=== PATIENT | female | born 1960 | race Caucasian/White ===

== ENCOUNTER 2023-05-21 08:10 | Observation (INO) ==
--- NOTE | 2023-04-21 16:03 | PAT Medication Instructions ---
Medication Instructions Date of Service April 21, 2023 Home Medications albuterol sulfate 90 mcg/actuation aerosol inhaler 2 puff inhalation QID PRN alprazolam 0.25 mg tablet (Xanax) 0.25 mg PO HS PRN amitriptyline 75 mg tablet 75 mg PO HS amlodipine 10 mg tablet 10 mg PO HS atorvastatin 40 mg tablet 40 mg PO HS cetirizine 10 mg tablet (Zyrtec) 10 mg PO QAM cyanocobalamin (vitamin B-12) 500 mcg tablet (Vitamin B-12) 500 mcg PO QAM diclofenac sodium 75 mg tablet,delayed release 75 mg PO BID enalapril 10 mg-hydrochlorothiazide 25 mg tablet 1 tab PO QAM ezetimibe 10 mg tablet (Zetia) 10 mg PO HS gabapentin 600 mg tablet 600 mg PO BID levothyroxine 112 mcg tablet (Synthroid) 112 mcg PO QAM metformin 500 mg tablet 500 mg PO BID metoprolol tartrate 50 mg tablet 50 mg PO BID montelukast 10 mg tablet (Singulair) 10 mg PO HS potassium chloride 10 mEq tablet,extended release 10 meq PO BID riboflavin (vitamin B2) 100 mg tablet (Vitamin B-2) 400 mg PO QAM ASK your surgeon for instructions diclofenac sodium 75 mg tablet,delayed release 75 mg PO BID DO NOT take the morning of surgery cetirizine 10 mg tablet (Zyrtec) 10 mg PO QAM cyanocobalamin (vitamin B-12) 500 mcg tablet (Vitamin B-12) 500 mcg PO QAM enalapril 10 mg-hydrochlorothiazide 25 mg tablet 1 tab PO QAM metformin 500 mg tablet 500 mg PO BID potassium chloride 10 mEq tablet,extended release 10 meq PO BID riboflavin (vitamin B2) 100 mg tablet (Vitamin B-2) 400 mg PO QAM Take morning of surgery With a small sip of water, OTHERWISE NOTHING TO EAT OR DRINK AFTER MIDNIGHT: albuterol sulfate 90 mcg/actuation aerosol inhaler 2 puff inhalation QID PRN(use if needed; please bring with you to hospital day of surgery if possible) gabapentin 600 mg tablet 600 mg PO BID levothyroxine 112 mcg tablet (Synthroid) 112 mcg PO QAM metoprolol tartrate 50 mg tablet 50 mg PO BID Take evening before surgery albuterol sulfate 90 mcg/actuation aerosol inhaler 2 puff inhalation QID PRN(if needed) alprazolam 0.25 mg tablet (Xanax) 0.25 mg PO HS PRN(if needed) amitriptyline 75 mg tablet 75 mg PO HS amlodipine 10 mg tablet 10 mg PO HS atorvastatin 40 mg tablet 40 mg PO HS ezetimibe 10 mg tablet (Zetia) 10 mg PO HS gabapentin 600 mg tablet 600 mg PO BID metformin 500 mg tablet 500 mg PO BID metoprolol tartrate 50 mg tablet 50 mg PO BID montelukast 10 mg tablet (Singulair) 10 mg PO HS potassium chloride 10 mEq tablet,extended release 10 meq PO BID Other Notes If you have any questions please call us at [phone] or [phone] or [phone] or [phone]
--- NOTE | 2023-04-30 11:52 | Anesthesiology Consultation ---
Date of Service April 30, 2023 Assessment & Plan (1) Encounter for pre-operative examination: - lidocaine allergy: tachycardia, "fingers turn blue" reported by pt. - Outpatient joint assessment: Patient is currently scheduled for inpatient pathway. If re-evaluated pending system levels during current pandemic/surgeon requests outpatient pathway, patient is not acceptable candidate for outpatient joint program from anesthesia standpoint. Chart Review Chart Review: Patient seen in Pre Admission Testing Teaching & Discussion Pre-Anesthesia Teaching/Discussion Notes: Instructed NPO after midnight before surgery, except medications with 15 cc of water. Medication instructions provided according to the PAT guidelines. History Surgery Operation Date: 05/21/23 09:55 Proposed Procedures p Right Total Knee Arthroplasty - Joe Solis DO Height/Weight Height: 5 ft 5 in Weight: 127.1 kg Allergies Allergy/AdvReac Type Severity Reaction Status Date / Time lidocaine Allergy Unknown INCREASED Verified 04/21/23 12:40 HR;FINGERS TURNED BLUE oxycodone Allergy Unknown ITCHING Verified 04/21/23 12:19 Medications Home Medications Medication Instructions Recorded Confirmed Last Taken albuterol sulfate 90 mcg/actuation 2 puff inhalation QID PRN 04/21/23 04/21/23 Unknown aerosol inhaler Shortness Of Breath Or Wheezing alprazolam 0.25 mg tablet (Xanax) 0.25 mg PO HS PRN Anxiety 04/21/23 04/21/23 Unknown amitriptyline 75 mg tablet 75 mg PO HS 04/21/23 04/21/23 Unknown amlodipine 10 mg tablet 10 mg PO HS 04/21/23 04/21/23 Unknown atorvastatin 40 mg tablet 40 mg PO HS 04/21/23 04/21/23 Unknown cetirizine 10 mg tablet (Zyrtec) 10 mg PO QAM 04/21/23 04/21/23 Unknown cyanocobalamin (vitamin B-12) 500 500 mcg PO QAM 04/21/23 04/21/23 Unknown mcg tablet (Vitamin B-12) diclofenac sodium 75 mg 75 mg PO BID 04/21/23 04/21/23 Unknown tablet,delayed release enalapril 10 1 tab PO QAM 04/21/23 04/21/23 Unknown mg-hydrochlorothiazide 25 mg tablet ezetimibe 10 mg tablet (Zetia) 10 mg PO HS 04/21/23 04/21/23 Unknown gabapentin 600 mg tablet 600 mg PO BID 04/21/23 04/21/23 Unknown levothyroxine 112 mcg tablet 112 mcg PO QAM 04/21/23 04/21/23 Unknown (Synthroid) metformin 500 mg tablet 500 mg PO BID 04/21/23 04/21/23 Unknown metoprolol tartrate 50 mg tablet 50 mg PO BID 04/21/23 04/21/23 Unknown montelukast 10 mg tablet 10 mg PO HS 04/21/23 04/21/23 Unknown (Singulair) potassium chloride 10 mEq 10 meq PO BID 04/21/23 04/21/23 Unknown tablet,extended release riboflavin (vitamin B2) 100 mg 400 mg PO QAM 04/21/23 04/21/23 Unknown tablet (Vitamin B-2) Past Medical History Medical History Anxiety Asthma rarely uses inhaler, very well controlled GERD (gastroesophageal reflux disease) rare, controlled, stable per pt History of COVID-19 11/2022- home test- fever-denies hospitalization- resolved HTN (hypertension) controlled, stable per pt Hx of colonic polyps Hx of supraventricular tachycardia hx- ~15 yrs ago; s/p ablation Hyperlipidemia Hypothyroidism Obesity on metformin for weightloss Seasonal allergies Patient denies h/o stroke, seizures, heart attack, heart failure, DM, blood clots or blood transfusions. Exercise / Class Metabolic Activity III < 4 Walking/Shop/Light housework (denies chest discomfort or shortness of breath with usual activities) Past Family History Family History Other No family history of adverse response to anesthesia Past Surgical History Surgical History History of breast biopsy multiple-benign History of cardiac radiofrequency ablation ~15 yrs ago- has not seen cardio since History of colon resection History of repair of ACL L Hx of appendectomy Hx of arthroscopy of shoulder right Hx of bilateral breast reduction surgery Hx of section x 2 Hx of colonoscopy Hx of knee surgery x3 Hx of tonsillectomy Past Anesthesia History No Hx of Anesthesia Complications and No Family Hx of Anesthesia Complications History of PONV No Hx of PONV and Hx of Motion Sickness Social History Smoking Status: Never smoker Do You Dip or Chew Tobacco: No Hx Alcohol Use: Yes alcohol intake frequency: holidays/special occasions only Hx Substance Use: No substance use type: does not use Review of Systems Patient denies chest pain, shortness of breath, dyspnea on exertion, snoring, witnessed apneas, fever, chills, cough, wheezing, or palpitations. Physical Exam Vital Signs Vitals BP 143/90 P 62 TEMP 98.2 SP02 96% on RA RESP 18 Physical Full cervical extension range of motion without pain TMD 3.5 finger breadths Mallampati Score 2 Dentition: intact, denies chipped or loose teeth, caps/crowns, implants or bridges Lungs: normal respiratory effort. Good air movement, clear throughout to auscultation, no adventitious breath sounds Cardiac: regular rate and rhythm, no murmurs noted Carotid arteries: negative bruit bilat Lab Results Anesthesia Preop Results Results Anesthesia Widget: WBC 6.88 K/ul (4.8-10.8) 04/30/23 Hgb 14.0 g/dl (12.0-16.0) 04/30/23 Hct 41.5 % (37.0-47.0) 04/30/23 Plt 325 K/uL (130-400) 04/30/23 Na 139 mmol/L (136-145) 04/30/23 K 4.0 mmol/L (3.5-5.1) 04/30/23 Cl 104 mmol/L (98-107) 04/30/23 CO2 28 mmol/L (21-32) 04/30/23 BUN 16 mg/dl (6-23) 04/30/23 Creat 0.84 mg/dl (0.6-1.2) 04/30/23 Glucose Level 104 mg/dl (70-99(Fasting)) H 04/30/23 PT 10.3 Seconds (9.0-12.0) 04/30/23 PTT 26.5 Seconds (21.0-31.0) 04/30/23 INR 0.9 (0.9-1.1) 04/30/23 HA1c 5.9 % (4.5-5.6) H 04/30/23 Urine Color Yellow 04/30/23 Urine Appearance Clear (Clear) 04/30/23 Urine pH 6.5 (4.5-7.5) 04/30/23 Urine Specific [place] 1.010 (1.000-1.030) 04/30/23 Urine Protein Negative (Negative) 04/30/23 Urine Glucose (UA) Negative (Negative) 04/30/23 Urine Ketones Negative (Negative) 04/30/23 Urine Blood Negative (Negative) 04/30/23 Urine Nitrite Negative (Negative) 04/30/23 Urine Bilirubin Negative (Negative) 04/30/23 Urine Urobilinogen Negative (Negative) 04/30/23 Urine Leukocyte Esterase Trace (Negative) H 04/30/23 Urine WBC (Auto) 1-5 /hpf (0-5) 04/30/23 Urine RBC (Auto) 0-4 /hpf (0-4) 04/30/23 Urine Hyaline Casts (Auto) 0 /lpf (0-5) 04/30/23 Urine Epithelial Cells (Auto) 20-30 /lpf (0-5) H 04/30/23 Urine Bacteria (Auto) Negative (Negative) 04/30/23 Blood Type A Positive 04/30/23 Antibody Screen NEGATIVE 04/30/23 Testing Electrocardiogram Date: 04/30/23 Sinus bradycardia, rate 59 bpm Chest X-Ray Date: 04/30/23 No active disease in the chest COVID-19 Risk Screen Screening Information COVID-19 Screen Date: 04/30/23 Exposure 21 Days Family/Household +COVID Last 21 Days: No Exposure 10 Days Any COVID Exposure Last 10 Days: No Symptoms Last 10 Days Experienced COVID Sx Last 10 Days: No + COVID 0-90 Days COVID + in Last 0-90 Days: No
--- NOTE | 2023-04-30 14:49 | History & Physical Report ---
Date of Service April 30, 2023 date of surgery: 05/21/23 Procedure: Right Total Knee Arthroplasty Surgeon: Joe Solis Assessment & Plan (1) Arthritis of right knee: Plan: Patient presents today for preop evaluation prior to right total knee replacement. She is a longstanding history of right knee pain has undergone previous viscosupplementation, cortisone injection as well as prior arthroscopy in 2019 this point time is failed conservative measures and would like to proceed with right total knee arthroplasty. She will see for preoperative clearance as well as obtain preadmission testing. We will plan on overnight stay with discharge home with home health physical therapy, follow-up 2 weeks after surgery. She has a listed allergy to oxycodone which causes a rash therefore we will try tramadol postoperatively. Will place on aspirin 81 mg twice a day for 1 month postop DVT prophylaxis The risks and benefits have been discussed including, but not limited to, risk of infection, nerve injury, stiffness, loss of motion, failure to improve, etc. Reasonable outcomes and options of treatment were discussed. An explanation of appropriate alternatives to the procedure that may be advantageous were discussed and their risks and benefits, as well as the risks and benefits of not proceeding with treatment. I offered to answer any additional inquiries concerning the treatment involved. All the patient's questions were answered. The patient is agreeable, understanding of the treatment plan and alternatives, and wishes to proceed with the treatment plan. History of Present Illness Chief Complaint: Right knee pain Primary Care Provider: MINDY PCP Yue a pleasant 62-year-old female who presented for preop evaluation prior to upcoming right total knee replacement. She states she had pain in this knee for many years now which is gradually worsened and is now affecting her daily activities including walking standing using stairs. Rates her current pain as a 6 out of 10, is complaints of pain decreased range of motion and instability. X-rays were reviewed which show advanced degenerative changes tricompartmentally, she is undergone previous viscosupplementation, corticosteroid injection as well as prior arthroscopy in 2019 at this point time is failed conservative measures and would like to proceed with a right total knee arthroplasty. Allergies Allergy/AdvReac Type Severity Reaction Status Date / Time lidocaine Allergy Unknown INCREASED Verified 04/21/23 12:40 HR;FINGERS TURNED BLUE oxycodone Allergy Unknown ITCHING Verified 04/21/23 12:19 Home Medications Medication Instructions Recorded Confirmed Type albuterol sulfate 90 mcg/actuation 2 puff inhalation QID PRN 04/21/23 04/21/23 History aerosol inhaler Shortness Of Breath Or Wheezing alprazolam 0.25 mg tablet (Xanax) 0.25 mg PO HS PRN Anxiety 04/21/23 04/21/23 History amitriptyline 75 mg tablet 75 mg PO HS 04/21/23 04/21/23 History amlodipine 10 mg tablet 10 mg PO HS 04/21/23 04/21/23 History atorvastatin 40 mg tablet 40 mg PO HS 04/21/23 04/21/23 History cetirizine 10 mg tablet (Zyrtec) 10 mg PO QAM 04/21/23 04/21/23 History cyanocobalamin (vitamin B-12) 500 500 mcg PO QAM 04/21/23 04/21/23 History mcg tablet (Vitamin B-12) diclofenac sodium 75 mg 75 mg PO BID 04/21/23 04/21/23 History tablet,delayed release enalapril 10 1 tab PO QAM 04/21/23 04/21/23 History mg-hydrochlorothiazide 25 mg tablet ezetimibe 10 mg tablet (Zetia) 10 mg PO HS 04/21/23 04/21/23 History gabapentin 600 mg tablet 600 mg PO BID 04/21/23 04/21/23 History levothyroxine 112 mcg tablet 112 mcg PO QAM 04/21/23 04/21/23 History (Synthroid) metformin 500 mg tablet 500 mg PO BID 04/21/23 04/21/23 History metoprolol tartrate 50 mg tablet 50 mg PO BID 04/21/23 04/21/23 History montelukast 10 mg tablet 10 mg PO HS 04/21/23 04/21/23 History (Singulair) potassium chloride 10 mEq 10 meq PO BID 04/21/23 04/21/23 History tablet,extended release riboflavin (vitamin B2) 100 mg 400 mg PO QAM 04/21/23 04/21/23 History tablet (Vitamin B-2) Past Med/Surg History Medical History Anxiety Asthma rarely uses inhaler, very well controlled GERD (gastroesophageal reflux disease) rare, controlled, stable per pt History of COVID-19 11/2022- home test- fever-denies hospitalization- resolved HTN (hypertension) controlled, stable per pt Hx of colonic polyps Hx of supraventricular tachycardia hx- ~15 yrs ago; s/p ablation Hyperlipidemia Hypothyroidism Obesity on metformin for weightloss Seasonal allergies Surgical History History of breast biopsy multiple-benign History of cardiac radiofrequency ablation ~15 yrs ago- has not seen cardio since History of colon resection History of repair of ACL L Hx of appendectomy Hx of arthroscopy of shoulder right Hx of bilateral breast reduction surgery Hx of section x 2 Hx of colonoscopy Hx of knee surgery x3 Hx of tonsillectomy Family History Other No family history of adverse response to anesthesia Social History Smoking Status: Never smoker Second Hand Exposure: No; Do You Dip or Chew Tobacco: No; Hx Alcohol Use: Yes Hx Substance Use: No Preferred Language: Romansh Communication Ability: Effective Film Processor Required: No Beliefs That Will Affect Care: None Current Living Situation: Spouse and Family Feels Safe at Home: Yes Assistive Devices: Glasses Review of Systems Review of Systems: All systems reviewed & are unremarkable except as noted in HPI & below Constitutional: no fever, no chills and no sweats Respiratory: no cough and no dyspnea Cardiovascular: no chest pain, no dyspnea and no orthopnea Gastrointestinal: no abdominal pain, no nausea and no vomiting Musculoskeletal: as per Subjective / HPI Physical Exam Physical Exam: HT: 5ft 5in WT: 127 kg Constitutional: WD/WN, vitals as above no acute distress Respiratory: normal respiratory effort, lungs clear to auscultation no respiratory distress, no labored breathing and does not use accessory muscles Cardiovascular: RRR, no murmur, no edema Gastrointestinal (Abdomen): normal bowel sounds, soft, nontender, no hepatosplenomegaly Musculoskeletal: Knee: + knee abnormal to inspection (RIGHT KNEE), + effusion (+1 effusion), + surgical incision (well healed portals), + limited ROM of knee (ROM 0/3/110), + knee ROM with crepitation, + joint line tenderness (medial joint line) and + Lesyle's sign positive; no deformity, no skin erythema, no ecchymosis, no valgus laxity, no varus laxity, anterior drawer test negative, Brandie's sign negative and pivot shift test negative Results & Data Results & Data Diagnostic Findings Right Knee X-ray: Right knee series showing advanced degenerative changes to the right knee, narrowing of the medial compartment and patello-femoral joint with patellar spurring noted, findings showing joint space narrowing of the medial compartment and patello-femoral joint, osteophyte formation and subchondral sclerosis noted. overall varus alignment. no acute bony pathology noted.
[~2023-05-21 08:10] MED LIST: ACETAMINOPHEN 500 MG TAB PO SCH; BUPIVACAINE 0.25% PF 30 ML VIAL ONE; BUPIVACAINE 0.5 % 5 MG/1 ML PF 10ML VIAL ONE; CeleBREX 200 MG CAP PO SCH; DEXAMETHASONE SOD INJ 4 MG/ML VIAL ONE; EPINEPHrine INJ 1 MG/ML AMP ONE; FAMOTIDINE 20 MG TAB PO SCH; GABAPENTIN 600 MG DOSE PO SCH; LIDOCAINE 2% 2 ML VIAL/AMP(20MG/ML) INFIL ONE; LR 500ML BOLUS, THEN 15ML/HR IV SCH; LR 60ML/HR IV SCH; METOCLOPRAMIDE HCL 10 MG TABLET PO SCH; MIDAZOLAM HCL 1 MG/ML 2ML VIAL ONE; ONDANSETRON INJ 2 MG/ML 2 ML VIAL ONE; ROPIVACAINE 0.5% HCL/PF 150 MG, BUPIVACAINE 0.75% MPF 20 ML, EPINEPHrine 30MG/30ML (OR ... INSTIL SCH; TRANEXAMIC ACID 1,000 MG **IV Intra-op IV SCH; TRANEXAMIC ACID 1,000 MG **IV Pre-op IV SCH; dexAMETHasone 4 MG TAB PO SCH; fentaNYL citrate PF 100 MCG/2 ML VIAL ONE
--- NOTE | 2023-05-21 09:47 | History & Physical Bridge Note ---
Date of Service May 21, 2023 History & Physical Bridge Note I have examined the patient, reviewed the History & Physical and in the interval since the performance of the History & Physical I have noted the following changes of clinical significance: no changes noted
[2023-05-21] MEDS ORDERED: ONDANSETRON INJ 2 MG/ML 2 ML VIAL IV PRN ×2 (10:08→15:04)
[2023-05-21] MEDS ORDERED: fentaNYL citrate PF 100 MCG/2 ML VIAL IV PRN (10:08)
[2023-05-21] MEDS ORDERED: ATROPINE SULFATE 0.1 MG/ML 10ML SYR IV PRN (10:08)
[2023-05-21] MEDS ORDERED: ePHEDrine sulfate 50 MG/ML AMP IV PRN (10:08)
[2023-05-21] MEDS ORDERED: ORTHO JOINT ANESTHETIC ONE (10:24)
[2023-05-21] MEDS ORDERED: ePHEDrine sulfate 50 MG/ML SYR ONE (12:42)
[2023-05-21] MEDS ORDERED: PHENYLEPHRINE 100MCG/ML 5ML SYR ONE (12:43)
--- NOTE | 2023-05-21 13:16 | Operative Report ---
Post Operative Report Pre & Post Diagnosis Operation Date: 05/21/23 10:00 Pre-Op Diagnosis: Right Knee OsteoarthritisMorbid obesity BMI 46.6 Post-Op Diagnosis: Right Knee OsteoarthritisMorbid obesity BMI 46.6 I identified the patient and participated in the time-out.: Yes Procedure Operation Date: 05/21/23 10:00 Actual Procedures p Right Total Knee Arthroplasty(Right)Utilizing [employer] Neph[employer]ymirum journey 2 patient matched total knee arthroplasty size femur for right tibia 3 right poly 12 patella 32 vika - Joe Solis DO Surgeon Joe Solis DO Band Salvager Mata COULTER Estimated Blood Loss 10 Findings Consistent with Post-Op Diagnosis Patient presents with severe end-stage tricompartmental degenerative joint disease right knee varus alignment subchondral sclerosis marginal osteophytes subchondral eburnated [id number] with moderate to large effusion and obese leg Specimens Bone and cartilage Drains Medium bore Hemovac Anesthesia Type MAC Spinal Regional Complications none Disposition Accompanied Patient To Recovery: No Disposition: Recovery Room Indications Patient presents with severe end-stage tricompartmental DJD right knee nonresponse to conservative manage including physical therapy anti- inflammatories relative rest activity modification corticosteroid injections viscosupplementation above intraoperative findings were noted Description of Procedure After proper prepping and draping of the Right lower extremity anterior midline incision was made over the region of the extensor extensor mechanism after meticulous hemostasis was obtained and maintained in subcutaneous tissues a medial parapatellar incision was made The patella was subluxed lateralward the medial lateral gutter were cleaned from any hypertrophic synovitis and scar tissue of the distal femoral block was placed and the distal femoral osteotomy cut was made subsequently the chamfers anterior and posterior osteotomy cuts were made utilizing the 4-in-1 block the tibia was subsequently subluxed anteriorward medial and ateral meniscal remnants were excised in their entirety remnants of the anterior and posterior cruciate ligaments were excised in their entirety excellent exposure of the proximal tibia was obtained the tibial osteotomy guide was placed on the proximal tibial osteotomy cut was made once again the knee was irrigated with copious amounts of sterile saline solution the patella was subsequently everted lateralward thickened scar tissue around the patella was removed the patella was subsequently cut utilizing a freehand technique and was drilled prepared for final preparation and placement of patella socially flexion-extension gaps were checked and the equal and symmetric trials were placed to the appropriate femoral and tibial trials with poly-spacer being placed for equal flexion and extension gaps and full range of motion including extension to 0 and flexion to 140 the trial components after having been taken to recovery range of motion was subsequently removed meticulous hemostasis was obtained and maintained subsequently a knee block injection of joint cocktail including ropivacaine 0.5% 150 mg. Bupivacaine 0.5% epinephrine 1-200,030 mL's toradol 30 mg dexamethasone 4 mg ketamine 10 mg clonidine 100 micrograms normal saline solution 30 mg was infiltrated into the soft tissues of the posterior knee medial lateral gutters and periosteal synovium special attention was paid to protect neurovascular structures at all times subsequently trial components having been removed the knee was irrigated with sterile saline solution. debris was removed the proximal tibia was subsequently prepared and was made ready for the placement of the tibial component tibial component was also cemented and tamped into position the femoral component was subsequently placed and cemented in the position the patellar component was subsequently cemented in position because hemostasis once again obtained and maintained wound having been thoroughly irrigated with debridement and debridement lavage was performed as well as a medial parapatellar incision closed with #1 Vicryl in interrupted fashion subcutaneous was closed with #2 Vicryl skin was closed with skin clips. PA-C was necessary for prepping and drapping as well as wound closure of deep fascia Sub cutaneous tissue and skin and was necessary for the case. A sterile compressive dressing was placed patient was taken to recovery in stable condition of report dictated by Will I attest to the content of the Intraoperative Record and any orders documented therein. Any exceptions are noted below.Due to the complex nature of the procedure, the entire surgery was performed with the operational assistance of Mata COULTER. The assistant to the president, under direct supervision, was involved in the actual performance of all aspects of the surgical procedure including hemostasis, tissue retraction and incision, instrument management, patient positioning, and wound closure.The patient is1 2 7 kg with a BMI of46.6]. The patient's habitus did contribute to significant technical difficulty requiring extra time. Additional help was necessary in order to position the patient safely. The use of specialized (longer, deeper) retractors and/or instruments were needed. Due to this, the procedure took 20] minutes longer than the standard total knee arthroplasty." I attest to the content of the Intraoperative Record and any orders documented therein. Any exceptions are noted below.
--- NOTE | 2023-05-21 14:35 | Anesthesiology Progress Note ---
Date of Service May 21, 2023 Anesthesia Post Procedure Vital Signs Vital Signs: Temp Pulse Pulse Resp BP Pulse Ox O2 Del Method 05/21/23 14:25 70 20 146/82 H 93 Room Air 05/21/23 14:15 69 20 125/71 94 Room Air 05/21/23 14:05 69 15 120/70 95 Room Air 05/21/23 13:59 97.5 F L 74 14 98/55 L 98 Room Air 05/21/23 08:43 98.6 F 61 20 141/92 H 96 Room Air Transfer of Care Handoff Completed per policy Notes Mental Status: alert / awake / arousable and participated in evaluation Patient Amnestic to Procedure: Yes Nausea / Vomiting: adequately controlled Pain: adequately controlled Airway Patency, RR, SpO2: stable & adequate BP & HR: stable & adequate Hydration State: stable & adequate Neuraxial Anesthesia: was administered and sensory block is resolving Anesthetic Complications: no major complications apparent and Pt Satisfied with anesthetic care
[2023-05-21] MEDS ORDERED: HYDROmorphone INJ 0.5 MG/0.5 ML SYR IV PRN (15:04)
[2023-05-21] MEDS ORDERED: NALOXONE HCL 0.4 MG/1 ML VIAL/CARP IV PRN (15:04)
[2023-05-21] MEDS ORDERED: ALPRAZolam 0.25 MG TABLET PO PRN (15:04)
[2023-05-21] MEDS ORDERED: MAGNESIUM HYDROXIDE SUSP 30 ML UDC PO PRN (15:04)
[2023-05-21] MEDS ORDERED: ALBUTEROL HFA 8 GM INHALER INH PRN (15:04)
[2023-05-21] MEDS ORDERED: bisacodyL 10 MG SUPP PR PRN (15:04)
[2023-05-21] MEDS ORDERED: traMADol HCL 50 MG TABLET PO PRN (15:04)
[2023-05-21] MEDS ORDERED: diphenhydrAMINE 50 MG/ML VIAL IV PRN (15:04)
--- NOTE | 2023-05-21 15:04 | XRay Report ---
XR knee RT 1 or 2V routine CLINICAL HISTORY: Surgical Post Op COMPARISON: None FINDINGS: Alignment of the total right knee arthroplasty is anatomic. There is no periprosthetic fra cture or unexpected radiopaque foreign body. There are drains and skin cheryl. IMPRESSION: Expected findings following total right knee arthroplasty. ACT 112: Negative or not required by law. Electronically signed by: Cornel Santos M.D. 05/21/2023 3:02 PM
[2023-05-21] MEDS: SODIUM CHLORIDE 0.9% 1000ML 1,000 ML IV SCH (17:22)
[2023-05-21] MEDS ORDERED: AMITRIPTYLINE HCL 25 MG TAB PO SCH (21:00)
[2023-05-21] MEDS ORDERED: amLODIPine BESYLATE 5 MG TAB PO SCH (21:00)
[2023-05-21] MEDS ORDERED: MONTELUKAST SODIUM 10 MG TABLET PO SCH (21:00)
[2023-05-21] MEDS ORDERED: EZETIMIBE 10 MG TABLET PO SCH (21:00)
[2023-05-21] MEDS ORDERED: ATORVASTATIN 40 MG TAB PO SCH (21:00)
[2023-05-21] MEDS ORDERED: SENNA 8.6 MG TAB PO SCH (21:00)
[2023-05-21] MEDS: POTASSIUM CHLORIDE 10 MEQ TABCR PO SCH (22:15)
[2023-05-21] MEDS: ACETAMINOPHEN 500 MG TAB PO SCH (22:16)
[2023-05-21] MEDS: GABAPENTIN 600 MG TAB PO SCH (22:16)
[2023-05-21] MEDS: METOPROLOL TARTRATE 50 MG TAB PO SCH (22:16)
[2023-05-21] MEDS: DOCUSATE SODIUM 100 MG CAP PO SCH (22:16)
[2023-05-21] MEDS: metFORMIN HCL 500 MG TAB PO SCH (22:16)
[2023-05-21] MEDS: ceFAZolin 2000MG 2,000 MG/15 ML SYR IV SCH (22:17)
[2023-05-21] MEDS: ASPIRIN 81 MG ECTAB PO SCH (22:17)
[2023-05-22] MEDS: ceFAZolin 2000MG 2,000 MG/15 ML SYR IV SCH (03:24)
[2023-05-22] MEDS: SODIUM CHLORIDE 0.9% 1000ML 1,000 ML IV SCH (03:35)
[2023-05-22] MEDS: ACETAMINOPHEN 500 MG TAB PO SCH (05:34)
[2023-05-22] MEDS ORDERED: LEVOTHYROXINE SODIUM 112 MCG TABLET PO SCH (06:30)
--- NOTE | 2023-05-22 06:58 | Orthopedic Progress Note ---
Date of Service May 22, 2023 Assessment & Plan (1) History of total right knee replacement: Plan: POD #1 s/p Right TKA pt/ot dvt proph with GUY/SCD/ASA plan for d/c home with HHPT after PT Admission and Anticipated Discharge Date Admission Date: May 21, 2023 Subjective POD #1 s/p Right TKA Review of Systems Constitutional: no fever, no chills and no sweats Respiratory: no cough and no dyspnea Cardiovascular: no chest pain and no dyspnea Gastrointestinal: no abdominal pain, no nausea and no vomiting Physical Exam Physical Exam: Vital Signs Temp Pulse Pulse Pulse Resp BP BP 05/22/23 03:09 36.4 C L 66 16 109/66 05/21/23 22:15 05/21/23 22:22 36.4 C L 77 16 143/78 H 05/21/23 17:55 37.1 C 93 H 18 138/84 05/21/23 16:58 37.4 C 89 16 157/79 H 05/21/23 15:59 37.1 C 73 16 142/80 H 05/21/23 15:04 36.4 C L 69 16 156/79 H 05/21/23 14:35 36.7 C 70 22 149/82 H 05/21/23 14:25 70 20 146/82 H 05/21/23 14:15 69 20 125/71 05/21/23 14:05 69 15 120/70 05/21/23 13:59 36.4 C L 74 14 98/55 L 05/21/23 08:43 37 C 61 20 141/92 H Pulse Ox O2 Del Method 05/22/23 03:09 94 Room Air 05/21/23 22:15 Room Air 05/21/23 22:22 94 Room Air 05/21/23 17:55 94 Room Air 05/21/23 16:58 94 Room Air 05/21/23 15:59 95 Room Air 05/21/23 15:04 95 Room Air 05/21/23 14:35 94 Room Air 05/21/23 14:25 93 Room Air 05/21/23 14:15 94 Room Air 05/21/23 14:05 95 Room Air 05/21/23 13:59 98 Room Air 05/21/23 08:43 96 Room Air Intake and Output 05/21/23 05/21/23 05/22/23 14:59 22:59 06:59 Intake Total 1500 / 2572.5 72.5 / 2572.5 1000 / 2572.5 Output Total 10 / 1540 1210 / 1540 320 / 1540 Balance 1490 / 1032.5 -1137.5 / 1032.5 680 / 1032.5 Intake: IV 100 / 1172.5 72.5 / 1172.5 1000 / 1172.5 Lactated Ringe r's 1,000 ml @ 15 0 / 0 mls/hr IV .Q24 H [facility] Rx#: [id number] Sodium Chlorid e 0.9% 1000ML 1, 1000 / 1000 000 ml @ 100 m ls/hr IV .Q10H [facility] Rx#:[id number] Tranexamic Aci d / 0.7% NaCl 1, 100 / 100 000 mg In 100 ml @ 600 mls/hr IV TODAY@0600 ROMM[facility] Rx#:[id number] ceFAZolin 3000 MG 72.5 ml @ 130 72.5 / 72.5 mls/hr IV PREO P [facility] Rx#: [id number] IV Perioperative 1400 / 1400 Output: Urine 1150 / 1450 300 / 1450 Estimated Blood Loss 10 10 Drain Output 60 / 80 20 / 80 Right Knee Hem ovac 60 / 80 20 / 80 Other: Weight 127.091 kg Weight Measureme nt Method Standing Scale Patient Weight 05/22/23 06:59 Weight 127.091 kg Constitutional: WD/WN, vitals as above Musculoskeletal: Right Leg: NVDI, calf SNT, negative pietro sign. DP palpable, able to wiggle toes/ankle movement without difficulty. dressing clean dry and intact. Results & Data Vital Signs (Past 12 Hours) Vital Signs Temp Pulse Resp BP Pulse Ox O2 Del Method 05/22/23 03:09 36.4 C L 66 16 109/66 94 Room Air 05/21/23 22:15 Room Air 05/21/23 22:22 36.4 C L 77 16 143/78 H 94 Room Air Laboratory Results Impressions Knee X-Ray 05/21/23 14:11 XR knee RT 1 or 2V routine CLINICAL HISTORY: Surgical Post Op COMPARISON: None FINDINGS: Alignment of the total right knee arthroplasty is anatomic. There is no periprosthetic fracture or unexpected radiopaque foreign body. There are drains and skin cheryl. IMPRESSION: Expected findings following total right knee arthroplasty. ACT 112: Negative or not required by law. Electronically signed by: Cornel Santos M.D. 05/21/2023 3:02 PM
[2023-05-22 07:04] LABS: Hematocrit (blood only) 37.2 % (37.0-47.0); Hemoglobin 12.4 g/dl (12.0-16.0); Mean Corpuscular Hemoglobin 29.9 pg (25.0-34.0); Mean Corpuscular Hgb Conc 33.3 g/dL (32.0-36.0); Mean Corpuscular Volume 89.6 fL (80.0-100.0); Mean Platelet Volume 11.5 fL (9.4-12.4); Platelet Count 327 K/uL (130-400); RDW Coefficient of Variation 12.5 % (11.5-14.5); Red Blood Count 4.15 M/uL (4.20-5.40); White Blood Count 18.19 K/ul (4.8-10.8)
[2023-05-22 07:23] LABS: Anion Gap 8 (3-11); BUN Creatinine Ratio 19.6 (10-20); Blood Urea Nitrogen 18 mg/dl (6-23); Calcium 8.9 mg/dl (8.6-10.3); Carbon Dioxide 25 mmol/L (21-32); Chloride 106 mmol/L (98-107); Est GFR (African American) 76.8 ml/min; Est GFR (Non-African American) 66.3 ml/min; Glucose 140 mg/dl (70-99(Fasting)); Sodium 139 mmol/L (136-145)
[2023-05-22] MEDS ORDERED: CYANOCOBALAMIN (B-12) 500 MCG TABLET PO SCH (09:00)
[2023-05-22] MEDS ORDERED: ENALAPRIL MALEATE 10 MG TAB PO SCH (09:00)
[2023-05-22] MEDS ORDERED: CETIRIZINE HCL 10 MG TABLET PO SCH (09:00)
[2023-05-22] MEDS ORDERED: hydroCHLOROthiazide 25 MG TAB PO SCH (09:00)
[2023-05-22] MEDS ORDERED: MULTIVITAMIN TAB PO SCH (09:00)
[2023-05-22] MEDS: GABAPENTIN 600 MG TAB PO SCH (09:31)
[2023-05-22] MEDS: ASPIRIN 81 MG ECTAB PO SCH (09:31)
[2023-05-22] MEDS: METOPROLOL TARTRATE 50 MG TAB PO SCH (09:31)
[2023-05-22] MEDS: metFORMIN HCL 500 MG TAB PO SCH (09:31)
[2023-05-22] MEDS: DOCUSATE SODIUM 100 MG CAP PO SCH (09:31)
[2023-05-22] MEDS: POTASSIUM CHLORIDE 10 MEQ TABCR PO SCH (09:32)
--- NOTE | 2023-05-23 15:04 | Discharge Summary ---
Date of Service May 23, 2023 Admission HPI Per Admitting Provider Liset a pleasant 62-year-old female who presented for preop evaluation prior to upcoming right total knee replacement. She states she had pain in this knee for many years now which is gradually worsened and is now affecting her daily activities including walking standing using stairs. Rates her current pain as a 6 out of 10, is complaints of pain decreased range of motion and instability. X-rays were reviewed which show advanced degenerative changes tricompartmentally, she is undergone previous viscosupplementation, corticosteroid injection as well as prior arthroscopy in 2019 at this point time is failed conservative measures and would like to proceed with a right total knee arthroplasty. Admission Exam Per Admitting Provider Physical Exam: HT: 5ft 5in WT: 127 kg Constitutional: WD/WN, vitals as above no acute distress Respiratory: normal respiratory effort, lungs clear to auscultation no respiratory distress, no labored breathing and does not use accessory muscles Cardiovascular: RRR, no murmur, no edema Gastrointestinal (Abdomen): normal bowel sounds, soft, nontender, no hepatosplenomegaly Musculoskeletal: Knee: + knee abnormal to inspection (RIGHT KNEE), + effusion (+1 effusion), + surgical incision (well healed portals), + limited ROM of knee (ROM 0/3/110), + knee ROM with crepitation, + joint line tenderness (medial joint line) and + Leslye's sign positive; no deformity, no skin erythema, no ecchymosis, no valgus laxity, no varus laxity, anterior drawer test negative, Brandie's sign negative and pivot shift test negative Principal Diagnosis Right knee osteoarthritis Discharge Data Allergies Allergy/AdvReac Type Severity Reaction Status Date / Time lidocaine Allergy Unknown INCREASED Verified 05/21/23 08:44 HR;FINGERS TURNED BLUE oxycodone Allergy Unknown ITCHING Verified 05/21/23 08:44 Consultations 05/21/23 15:04 Consult Hospitalist Routine Procedures Performed Operation Date: 05/21/23 10:00 Actual Procedures p Right Total Knee Arthroplasty(Right) - Joe Quezada DO Ordered Studies 05/21/23 05:00 US - OR guided needle placemen Routine Hospital Course (1) History of total right knee replacement: Patient:LISET KRISHNA Admit Date:05/21/23 MR#:[id number] Att Phy:Joe Quezada D.O. Acct ID:[id number] Mimi Phy:Anujit. Chen DO Date:1960 Fam Phy: Age:63 Location:3E Sex:F Room/Bed:E311-1 cc: ~ *NOTICE TO RECEIVING DEMOCRAT/AGENCY This information is strictly Confidential and protected under [place] law. [place] law prohibits you from making any further disclosure of this information unless further disclosure is expressly permitted by the written consent of the person to whom it pertains or is authorized by law. A general authorization for the release of medical or other information is not sufficient for this purpose. Hospital accepts no responsibility if the information is made available to any other person, INCLUDING THE PATIENT. Date of Service May 22, 2023 Assessment & Plan (1) History of total right knee replacement: Plan: POD #1 s/p Right TKA pt/ot dvt proph with GUY/SCD/ASA plan for d/c home with HHPT after PT Admission and Anticipated Discharge Date Admission Date: May 21, 2023 Subjective POD #1 s/p Right TKA Review of Systems Constitutional: no fever, no chills and no sweats Respiratory: no cough and no dyspnea Cardiovascular: no chest pain and no dyspnea Gastrointestinal: no abdominal pain, no nausea and no vomiting Physical Exam Physical Exam: Vital Signs Temp Pulse Pulse Pulse Resp BP BP 05/22/23 03:09 36.4 C L 66 16 109/66 05/21/23 22:15 05/21/23 22:22 36.4 C L 77 16 143/78 H 05/21/23 17:55 37.1 C 93 H 18 138/84 05/21/23 16:58 37.4 C 89 16 157/79 H 05/21/23 15:59 37.1 C 73 16 142/80 H 05/21/23 15:04 36.4 C L 69 16 156/79 H 05/21/23 14:35 36.7 C 70 22 149/82 H 05/21/23 14:25 70 20 146/82 H 05/21/23 14:15 69 20 125/71 05/21/23 14:05 69 15 120/70 05/21/23 13:59 36.4 C L 74 14 98/55 L 05/21/23 08:43 37 C 61 20 141/92 H Pulse Ox O2 Del Method 05/22/23 03:09 94 Room Air 05/21/23 22:15 Room Air 05/21/23 22:22 94 Room Air 05/21/23 17:55 94 Room Air 05/21/23 16:58 94 Room Air 05/21/23 15:59 95 Room Air 05/21/23 15:04 95 Room Air 05/21/23 14:35 94 Room Air 05/21/23 14:25 93 Room Air 05/21/23 14:15 94 Room Air 05/21/23 14:05 95 Room Air 05/21/23 13:59 98 Room Air 05/21/23 08:43 96 Room Air Intake and Output 05/21/23 05/21/23 05/22/23 14:59 22:59 06:59Intake Total 1500 / 2572.5 72.5 / 2572.5 1000 / 2572.5 Output Total 10 / 1540 1210 / 1540 320 / 1540 Balance 1490 / 1032.5 -1137.5 / 1032.5 680 / 1032.5 Intake: IV 100 / 1172.5 72.5 / 1172.5 1000 / 1172.5 Lactated Ringe r's 1,000 ml @ 15 0 / 0 mls/hr IV .Q24 H [facility] Rx#: [id number] Sodium Chlorid e 0.9% 1000ML 1, 1000 / 1000 000 ml @ 100 m ls/hr IV .Q10H [facility] Rx#:[id number] Tranexamic Aci d / 0.7% NaCl 1, 100 / 100 000 mg In 100 ml @ 600 mls/hr IV TODAY@0600 [facility] Rx#:[id number] ceFAZolin 3000 MG 72.5 ml @ 130 72.5 / 72.5 mls/hr IV PREO P [facility] Rx#: [id number] IV Perioperative 1400 / 1400 Output: Urine 1150 / 1450 300 / 1450 Estimated Blood Loss 10 / 10 Drain Output 60 / 80 20 / 80 Right Knee Hem ovac 60 / 80 20 / 80 Other: Weight 127.091 kg Weight Measureme nt Method Standing Scale Patient Weight 05/22/23 06:59Weight 127.091 kg Constitutional: WD/WN, vitals as above Musculoskeletal: Right Leg: NVDI, calf SNT, negative pietro sign. DP palpable, able to wiggle toes/ankle movement without difficulty. dressing clean dry and intact. Results & Data Vital Signs (Past 12 Hours) Vital Signs Temp Pulse Resp BP Pulse Ox O2 Del Method 05/22/23 03:09 36.4 C L 66 16 109/66 94 Room Air 05/21/23 22:15 Room Air 05/21/23 22:22 36.4 C L 77 16 143/78 H 94 Room Air Laboratory Results Impressions Knee X-Ray 05/21/23 14:11 XR knee RT 1 or 2V routine CLINICAL HISTORY: Surgical Post Op COMPARISON: None FINDINGS: Alignment of the total right knee arthroplasty is anatomic. There is no periprosthetic fracture or unexpected radiopaque foreign body. There are drains and skin cheryl. IMPRESSION: Expected findings following total right knee arthroplasty. ACT 112: Negative or not required by law. Electronically signed by: Cornel Santos M.D. 05/21/2023 3:02 PM Signed By: <Electronically signed by Dionisio Whitehead PA-C> 05/22/23 0659 <Electronically signed by Jesus Newman M.D.> 05/22/23 1340 Created:05/22/23 0657 Total Time Total Time Spent Total Time Spent (In Minutes): 5 Discharge Plan Discharge Items Patient Disposition: Home - Home Health Services Reason For Visit: Right Knee DJD Discharge Diagnosis: Right Knee Osteoarthritis Activity: Per Instructions section Weightbearing Comment: as tolerated with walker Non-emergency contact: Surgeon Call non-emergency contact if: you have any medication questions, your pain is not controlled, your temperature is above 101.5, your wound has increased redness and your wound has increased drainage Follow-up/Referrals: Joe Quezada DO [Surgeon] - (Follow up with Dr Quezada or his PA in 2 weeks from the day of your surgery for your first post operative visit) PCP,NO [Physician] - Diet: Regular Addtl Attending Provider Instructions: ACTIVITY RECOMMENDATIONS: SELF CARE INSTRUCTIONS AFTER TOTAL KNEE REPLACEMENT A. You may need to continue a physical therapy program after discharge from the hospital. There are several options available to you. Your doctor will assist you in selecting the best one for you. 1. An out-patient facility 2 to 3 times a week for therapy or home therapy. 2. Continue working on all exercises taught to you in the hospital. Your goals should be to increase bending of your knee to 90 degrees and beyond and to fully straighten your knee. B. You may progress at your own pace from walking with a walker or crutches to a cane; then to no assistive devices. C. Make walking a part of your daily routine. Be up as much as comfortable with rest periods throughout the day. Rest with leg elevation is very important. Use the ice wrap frequently for the first 3-4 weeks. D. There are no restrictions on activities. You may ride in a car, shop, participate in coke still cleaner and all social activities. E. Wear the long elastic stockings (GUY hose) 20 hours a day for 2 weeks after surgery. They can be removed several times a day for laundering and for a bath. F. You may shower, no tub baths until cleared by your doctor. SPECIAL CARE INSTRUCTIONS: VERY IMPORTANT TO READ AND REVIEW A. There are a few signs you need to watch for after you are home. Call [facility] [place] if you notice any of the followin. Increased severe knee pain. Some pain is expected especially when you exercise. 2. Increased swelling in your leg or knee; pain or swelling of the calf muscle in either lower leg. 3. Any fluid drainage from the incision. 4. Shortness of breath or chest pain. B. Please call [facility] at if you have any concerns or questions about your operation or recovery. The doctor or his nurse will return your call promptly. C. You must take antibiotics before dental work, bladder, bowel or other surgery. Your doctor will provide you with a permanent care to carry describing this precaution. IMPORTANT: * REMEMBER TO TAKE ASPIRIN, 81 MG, TWICE DAILY FOR 4 WEEKS UNLESS OTHERWISE DIRECTED. THIS IS YOUR BLOOD THINNER. * HIGH RISK PATIENTS MAY BE PRESCRIBED A STRONGER BLOOD THINNER. THIS WILL BE PROVIDED AT DISCHARGE. * CALL IF INCREASED PAIN, REDNESS, DRAINAGE OR FEVER GREATER THAT 101. * WEAR GUY HOSE 20 HOURS PER DAY FOR 2 WEEKS. * URBAN Dressing - This is a large suction dressing covering your incision. This will help pull any excess drainage from the wound and allow your incision to heal properly. You may shower with this if you can keep the unit outside of the shower. If any bleeding or leakage is noted please call your doctor's office. This will remain on your incision for 7 days and then should be removed. This can be done yourself or by the home nursing staff if applicable. The entire unit is disposable once removed. Once removed, keep incision clean and dry. If redness or drainage is noted, please call your surgeon. . FOLLOW UP VISIT: If appointment is not already scheduled: Please call [facility] [place] to make a follow-up appointment for 2 weeks after your surgery at . Stand-Alone Forms: My [facility] [email or web address], Smoking Cessation Medications and DC Order Prescriptions: New tramadol 50 mg Tablet 50 - 100 mg PO Q6H PRN (Reason: pain) Qty: 30 0RF Rx Instructions: ongoing therapy supervising dr bong quezada. max 6 tabs in 24 hours acetaminophen 500 mg tablet 1,000 mg PO Q8 21 Days Qty: 126 0RF celecoxib [Celebrex] 200 mg capsule 200 mg PO BID 30 Days Qty: 60 0RF aspirin 81 mg tablet,delayed release (DR/EC) 81 mg PO BID 30 Days Qty: 60 0RF cefadroxil 500 mg capsule 500 mg PO BID 14 Days Qty: 28 0RF docusate sodium 100 mg Capsule 100 mg PO BID Qty: 20 0RF Continued atorvastatin 40 mg Tablet 40 mg PO HS metformin 500 mg Tablet 500 mg PO BID gabapentin 600 mg Tablet 600 mg PO BID cetirizine [Zyrtec] 10 mg Tablet 10 mg PO QAM amitriptyline 75 mg Tablet 75 mg PO HS riboflavin (vitamin B2) [Vitamin B-2] 100 mg Tablet 400 mg PO QAM potassium chloride 10 mEq Tablet Extended Release 10 meq PO BID enalapril-hydrochlorothiazide 10-25 mg Tablet 1 tab PO QAM alprazolam [Xanax] 0.25 mg Tablet 0.25 mg PO HS PRN (Reason: Anxiety) cyanocobalamin (vitamin B-12) [Vitamin B-12] 500 mcg Tablet 500 mcg PO QAM amlodipine 10 mg Tablet 10 mg PO HS metoprolol tartrate 50 mg Tablet 50 mg PO BID montelukast [Singulair] 10 mg Tablet 10 mg PO HS albuterol sulfate 90 mcg/actuation Hfa Aerosol Inhaler 2 puff INHALATION QID PRN (Reason: Shortness Of Breath Or Wheezing) levothyroxine [Synthroid] 112 mcg Tablet 112 mcg PO QAM ezetimibe [Zetia] 10 mg Tablet 10 mg PO HS Discontinued diclofenac sodium 75 mg Tablet,Delayed Release (Dr/Ec) 75 mg PO BID Krames/Other Patient Handouts: Knee Replace Recovery Admission Data Admit Date/Time: 05/21/23 14:11 Attending Provider: Joe Quezada Admit Provider: Joe Quezada Primary Care Provider: Asif Chen Other Providers: Joe Dahl Other Interventions: Discharge Summary Assessment (RN) Last Done: 05/22/23 10:01
== END 2023-05-22 11:52 | disposition home health service (06) ==
LOC: ASU 08:10 → 3E 08:10